=== PATIENT | male | born 1965 | race Caucasian/White ===

== ENCOUNTER 2018-09-16 21:37 | Emergency (ER) | payer MEDICAID, OTHER ==
[2018-09-16] MEDS ORDERED: Ondansetron PF 4 MG/2 ML Vial ONE (22:10)
[2018-09-16 22:25] LABS: #Basophils 0.1 thou/uL (0.0-0.2); #Eosinphils 0.1 thou/uL (0.0-0.7); #Lymphocytes 2.3 thou/uL (1.20-3.40); #Monocytes 0.9 thou/uL (0.11-0.59); #Neutrophils 12.5 thou/uL (1.40-6.50); %Basophils 0.8 % (0.0-1.0); %Eosinophils 0.5 % (0.0-10.0); %Lymphocytes 14.2 % (21.0-51.0); %Monocytes 5.5 % (0.0-10.0); %Neutrophils 78.9 % (42.0-75.0); Hemoglobin 16.2 g/dL (14.0-18.0); Mean Corpuscular HGB CONC 32.3 g/dL (32.0-36.0); Mean Corpuscular Hemoglobin 25.7 pg (27.0-31.0); Mean Corpuscular Volume 79.7 fL (78.0-98.0); Mean Platelet Volume 7.1 fL (7.4-10.4); Platelet Count 321 thou/uL (130-400); RBC Distribution Width 13.5 % (11.5-14.5); Red Blood Cell (RBC) Count 6.29 mill/uL (4.70-6.10); White Blood Cell (WBC) Count 15.8 thou/uL (4.8-10.8)
[2018-09-16 22:37] LABS: ALT (SGPT) 19 U/L (8-55); AST (SGOT) 28 U/L (5-34); Albumin 3.7 g/dL (3.5-5.0); Alkaline Phosphatase 83 U/L (40-150); Anion Gap 19 mmol/L (10-20); BUN (Urea Nitrogen) 17 mg/dL (8.4-25.7); Bilirubin, Total 0.4 mg/dL (0.2-1.2); Calc. Creatinine Clearance 0 mL/min (70-130); Calcium 9.5 mg/dL (7.8-10.44); Carbon Dioxide 19 mmol/L (22-29); Chloride 100 mmol/L (98-107); Estimated GFR-MDRD 70; Globulin 3.6 g/dL (2.4-3.5); Glucose 304 mg/dL (70-105); Potassium 4.7 mmol/L (3.5-5.1); Protein, Total 7.3 g/dL (6.0-8.3); Sodium 133 mmol/L (136-145)
[2018-09-16] MEDS ORDERED: Sulfameth/Trimethoprim DS 800-160mg TAB ONE (22:52)
--- NOTE | 2018-09-16 23:46 | RAD ---
LEFT FOOT THREE VIEWS: 09/16/18 The exposure on the AP and oblique views is suboptimal. No fracture or periosteal reaction was apprec iated. There is a big os cuboidale. Calcaneal spurs are present. Hallux valgus and hammertoe deformi ties are present. IMPRESSION: No acute bony finding. POS: HOME
== END 2018-09-16 23:05 | disposition home or self-care (01) ==
LOC: BURERS 21:37
DX: L03.116 Cellulitis of left lower limb (principal); E11.9 Type 2 diabetes mellitus without complications; I10 Essential (primary) hypertension; Z79.899 Other long term (current) drug therapy; Z79.4 Long term (current) use of insulin
CPT/HCPCS: 80053; 85025; 96361; 96374; J2405

== ENCOUNTER 2018-09-28 00:06 | Emergency (ER) | payer OTHER ==
[2018-09-28] MEDS ORDERED: Morphine 4 MG/ML VIAL ONE (00:57)
[2018-09-28 00:59] LABS: #Basophils 0.2 thou/uL (0.0-0.2); #Eosinphils 0.1 thou/uL (0.0-0.7); #Lymphocytes 1.5 thou/uL (1.20-3.40); #Monocytes 1.2 thou/uL (0.11-0.59); #Neutrophils 15.4 thou/uL (1.40-6.50); %Eosinophils 0.3 % (0.0-10.0); %Lymphocytes 7.9 % (21.0-51.0); %Monocytes 6.5 % (0.0-10.0); %Neutrophils 84.3 % (42.0-75.0); Hemoglobin 14.2 g/dL (14.0-18.0); Mean Corpuscular HGB CONC 32.5 g/dL (32.0-36.0); Mean Corpuscular Hemoglobin 25.9 pg (27.0-31.0); Mean Corpuscular Volume 79.7 fL (78.0-98.0); Mean Platelet Volume 8.2 fL (7.4-10.4); Platelet Count 301 thou/uL (130-400); RBC Distribution Width 13.1 % (11.5-14.5); Red Blood Cell (RBC) Count 5.49 mill/uL (4.70-6.10); White Blood Cell (WBC) Count 18.3 thou/uL (4.8-10.8)
[2018-09-28 01:13] LABS: Acetaminophen Less than 6.0 mcg/mL (10.0-30.0); Alcohol Less than 10 mg/dL (Less than 10); Salicylate Less than 8.0 mg/dL (15.0-30.0)
[2018-09-28 01:15] LABS: ALT (SGPT) 99 U/L (8-55); AST (SGOT) 104 U/L (5-34); Albumin 3.9 g/dL (3.5-5.0); Alkaline Phosphatase 109 U/L (40-150); Anion Gap 17 mmol/L (10-20); BUN (Urea Nitrogen) 31 mg/dL (8.4-25.7); Bilirubin, Total 0.6 mg/dL (0.2-1.2); Calc. Creatinine Clearance 0 mL/min (70-130); Calcium 9.4 mg/dL (7.8-10.44); Carbon Dioxide 21 mmol/L (22-29); Chloride 96 mmol/L (98-107); Estimated GFR-MDRD 47; Globulin 3.2 g/dL (2.4-3.5); Glucose 423 mg/dL (70-105); Potassium 4.3 mmol/L (3.5-5.1); Protein, Total 7.1 g/dL (6.0-8.3); Sodium 130 mmol/L (136-145)
[2018-09-28] MEDS ORDERED: Ondansetron PF 4 MG/2 ML Vial ONE (01:28)
--- NOTE | 2018-09-28 08:00 | CT ---
PRELIMINARY REPORT/[facility]/EMERGENCY AFTER HOURS PROCEDURE: Addendum created by Garret Nicholson MD on 09/28/2018 2:40 AM Central Time ([place] & [place]) THIS REPORT CONTAI NS FINDINGS THAT MAY BE CRITICAL TO PATIENT CARE. The findings were verbally communicated via telepho ne conference with AMY FLORIAN at 2:40 AM [employer]PERATIONS CONTROLLER on 09/28/2018. The findings were acknowledged and und erstood. Initial Report created on 09/28/2018 2:34 AM Central Time ([place] & [place]) EXAM: CT Left Lower Extremity With Contrast EXAM DATE/TIME: 09/28/2018 1:39 AM CLINICAL HISTORY: 53 years old, male; Signs and symptoms; Other: No pulse TECHNIQUE: Imaging protocol: CT of the Left lower extremity with intravenous contrast was performed. 3D renderin g: MIP reconstructed images were created and reviewed. Radiation optimization: All CT scans at this [facility] use at least one of these dose optimization techniques: automated exposure control; mA and/or kV adjustment per patient size (includes targeted exams where dose is matched to clinical indication); or iterative reconstruction. Contrast material: ISOVUE 370; Contrast volume: 100 ml; Contrast route: 20GA LF FA; COMPARISON: No relevant prior studies available. 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 Soft tissues: Normal. Vasculature: Moderate atherosclerotic disease of the mid and distal right common femoral artery, caus ing approximately 50% luminal narrowing. Abrupt occlusion of the right distal femoral artery (series 2, image 106), suggesting acuity. Metallic stent within the right popliteal artery, which appears occ luded. The infrapopliteal vessels are reconstituted via small collaterals. There is three-vessel runo ff to the level of the right lower leg. Abrupt occlusion of the distal left superficial femoral arter y, suggesting acuity. Complete occlusion of the left popliteal artery and left infrapopliteal arteries. IMPRESSION: 1. Abrupt occlusion of the distal left superficial femoral artery, suggesting acuity. 2. Abrupt occlusion of the right distal femoral artery (series 2, image 106), suggesting acuity. 3. Metallic stent within the right popliteal artery, which appears occluded. 4. Complete occlusion of the left popliteal artery and left infrapopliteal arteries. Mildly enlarged left calf soft tissues, with increased attenuation of the subcutaneous tissues of the left thigh. Impression. F indings likely represent edema related to vascular occlusion. Thank you for allowing us to participate in the care of your patient. Dictated and Authenticated by: Garret Nicholson MD 09/28/2018 2:34 AM Central Time ([place] & [place]) FINAL REPORT CT ANGIO LOWER EXTREMITIES: Date: 09/28/[address] of both lower extremities was performed for evaluation of leg pain and edema. After a bolus of IV contrast, axial slices were required. MIP reconstructions in various planes were done for each lower extremity. FINDINGS: RIGHT LOWER EXTREMITY: There is abrupt occlusion of the more distal part of the right common femoral artery suggesting this is likely recent. Metallic stent is present in the right popliteal artery, which is likely to be occl uded as there is no flow before or after it. There is blood flow in the infrapopliteal vessels, which are evidently reconstituted via small collateral arteries. Blood flow is seen to the level of the lo wer leg. LEFT LOWER EXTREMITY: There is an abrupt occlusion of the distal portion of the left superficial femoral artery suggesting it is acute. There is no flow at all in the left popliteal artery or infrapopliteal arteries. All of these appear occluded. There is some mild swelling of the soft tissues of the left leg compared to th e right, which could be related to recent occlusion. IMPRESSION: 1. Abrupt occlusion of the distal right common femoral artery. No flow seen in the right popliteal a rtery stent. Reconstitution of vessels below the popliteal level via small collaterals. 2. Abrupt occlusion of the distal left superficial femoral artery, which suggests it may be acute. I see no flow in the left popliteal artery or infrapopliteal arteries beyond this point. Report in agreement with preliminary reading by Alexey. POS: HOME
[2018-09-28] MEDS ORDERED: Iopamidol 370 76% 100 ML VIAL ONE (11:39)
== END 2018-09-28 02:20 | disposition short-term general hospital (02) ==
LOC: BURERS 00:06
DX: L03.116 Cellulitis of left lower limb (principal); I70.90 Unspecified atherosclerosis; E11.9 Type 2 diabetes mellitus without complications; I10 Essential (primary) hypertension; Z79.4 Long term (current) use of insulin; Z79.899 Other long term (current) drug therapy
CPT/HCPCS: 36415; 80053; 80307; 83605; 85025; 87040; 96365; 96375; J2270; J2405; J3370; Q9967